=== PATIENT | male | born 1955 | race Caucasian/White ===

== ENCOUNTER 2016-04-06 08:28 | Outpatient (CLI) | payer BC ==
[2016-04-06 16:28] LABS: ALT (SGPT) 36 U/L (0-55); AST (SGOT) 25 U/L (5-34); Alkaline Phosphatase 75 U/L (40-150); Anion Gap 13 mmol/L (10-20); BUN (Urea Nitrogen) 17 mg/dL (8.4-25.7); Bilirubin, Total 0.6 mg/dL (0.2-1.2); Calc. Creatinine Clearance 0 mL/min (70-130); Calcium 9.8 mg/dL (7.8-10.44); Carbon Dioxide 29 mmol/L (22-29); Chloride 101 mmol/L (98-107); Estimated GFR-MDRD 71; Globulin 2.6 g/dL (2.4-3.5); LDL Cholesterol, Calculated 112 mg/dL
[2016-04-06 18:12] LABS: #Basophils 0.1 thou/uL (0.0-0.2); #Eosinphils 0.5 thou/uL (0.0-0.7); #Lymphocytes 1.2 thou/uL (1.20-3.40); #Monocytes 0.8 thou/uL (0.11-0.59); #Neutrophils 3.7 thou/uL (1.40-6.50); %Basophils 2.2 % (0.0-1.0); %Eosinophils 8.5 % (0.0-10.0); %Monocytes 12.1 % (0.0-10.0); Hematocrit 49.6 % (42.0-52.0); Mean Platelet Volume 5.1 fL (7.4-10.4); Red Blood Cell (RBC) Count 5.47 mill/uL (4.70-6.10); White Blood Cell (WBC) Count 6.4 thou/uL (4.8-10.8)
== END 2016-04-06 08:29 | disposition home or self-care (01) ==
LOC: LABLEX 08:28
PROVIDERS: ATTEND Family Medicine
DX: E78.5 Hyperlipidemia, unspecified (principal); I10 Essential (primary) hypertension
CPT/HCPCS: 36415; 80053; 80061; 84153; 84443; 85025

== ENCOUNTER 2021-05-08 11:10 | Outpatient (CLI) | payer MEDICARE, OTHER | END 2021-05-08 11:11 | disposition home or self-care (01) | LOC: BURRAD 11:10 | PROVIDERS: ATTEND Nurse Practitioner | DX: S90.02XA Contusion of left ankle, initial encounter (principal) ==